=== PATIENT | female | born 1990 | race Caucasian/White ===

== ENCOUNTER 2016-09-14 22:17 | Outpatient (CLI) | payer OTHER ==
[2016-09-14 23:53] LABS: APPEARANCE,URINE CLEAR; BILIRUBIN,URINE NEGATIVE (NEGATIVE); GLUCOSE, URINE NEGATIVE (NEGATIVE); KETONES,URINE NEGATIVE (NEGATIVE); LEUKOCYTE ESTERASE,URINE SMALL (NEGATIVE); NITRITE,URINE NEGATIVE (NEGATIVE); PROTEIN,URINE NEGATIVE (NEGATIVE); URINE SPECIFIC GRAVITY 1.004; UROBILINOGEN,URINE NEGATIVE mg/dL (<2.0)
[2016-09-15 00:02] LABS: URINE BARBITURATES SCREEN NEGATIVE; URINE METHADONE SCREEN NEGATIVE; URINE OPIATES LOW NEGATIVE; URINE PHENCYCLIDINE SCREEN NEGATIVE
--- NOTE | 2016-09-15 00:11 | Non Stress Test Report ---
Non Stress Test Datetime Report Generated by CPN: 09/15/2016 00:10 DEMOGRAPHIC EGA NST: 37.1 INDICATION Indication for Study: Decreased Movement; Ordered by Provider MONITORING Monitor Explained: Monitor Explained; Test Explained; Patient Verbalized Understanding Time on Monitor: 09/14/2016 23:26 Time off Monitor: 09/15/2016 00:09 NST Duration: 43 NST INTERVENTIONS NST Interventions: PO Hydration Physician Notified NST: Nickolas BABY A: [id number] BABY A Movement : Present Contraction Frequency : none FHR Baseline : 150 Accelerations : 15X15 Decelerations : None Variability : Moderate 6-25bpm NST Review: Meets Criteria for Reactive NST NST Review and Verified By : Karen Molina RN NST Results: Reactive NST REPORT Report Trigger: Send Report
== END 2016-09-15 00:19 | disposition home or self-care (01) ==
LOC: LC 22:17
PROVIDERS: ATTEND Specialist
PROC: 4A1HXCZ Monitoring of Products of Conception, Cardiac Rate, External Approach (ICD-10-PCS; principal; 2016-09-14)
DX: O47.1 False labor at or after 37 completed weeks of gestation (principal); O36.8130 Decreased fetal movements, third trimester, not applicable or unspecified; Z3A.37 37 weeks gestation of pregnancy
CPT/HCPCS: 80307; 81001

== ENCOUNTER 2016-10-07 22:55 | Inpatient (IN) | payer OTHER ==
[2016-10-08 00:20] LABS: APPEARANCE,URINE CLEAR; BILIRUBIN,URINE NEGATIVE (NEGATIVE); GLUCOSE, URINE NEGATIVE (NEGATIVE); KETONES,URINE NEGATIVE (NEGATIVE); LEUKOCYTE ESTERASE,URINE NEGATIVE (NEGATIVE); NITRITE,URINE NEGATIVE (NEGATIVE); PROTEIN,URINE NEGATIVE (NEGATIVE); URINE SPECIFIC GRAVITY 1.004; UROBILINOGEN,URINE NEGATIVE mg/dL (<2.0)
[2016-10-08 00:36] LABS: URINE BARBITURATES SCREEN NEGATIVE; URINE METHADONE SCREEN NEGATIVE; URINE OPIATES LOW NEGATIVE; URINE PHENCYCLIDINE SCREEN NEGATIVE
[2016-10-08] MEDS ORDERED: MAG HYDROX/AL HYDROX/SIMETH SUSP 30 ML UDCUP PO ONE (02:03)
[2016-10-08] MEDS ORDERED: MAG HYDROX/AL HYDROX/SIMETH SUSP 30 ML UDCUP ONE (02:08)
[2016-10-08] MEDS ORDERED: RINGERS SOLUTION,LACTATED 1,000 ML IV PRN (02:59)
[2016-10-08] MEDS ORDERED: RINGERS SOLUTION,LACTATED 1,000 ML IV ONE (02:59)
[2016-10-08 03:28] LABS: ABSOLUTE BASOPHILS # (AUTO) 0.1 10^3/uL (0.0-0.2); ABSOLUTE EOSINOPHILS # (AUTO) 0.1 10^3/uL (0.0-0.6); ABSOLUTE LYMPHOCYTES (AUTO) 1.5 10^3/uL (0.5-4.7); ABSOLUTE MONOCYTES (AUTO) 0.7 10^3/uL (0.1-1.4); ABSOLUTE NEUT (AUTO) 6.1 10^3/uL (1.7-8.2); BASOPHILS % (AUTO) 0.6 % (0-2); EOSINOPHILS % (AUTO) 0.8 % (0-6); HEMOGLOBIN 10.3 g/dL (12.0-15.5); HGB HCT DIFFERENCE -0.1; MEAN CORPUSCULAR HEMOGLOBIN 25.9 pg (27.0-33.4); MEAN CORPUSCULAR HGB CONC 33.3 g/dL (32.0-36.0); MEAN CORPUSCULAR VOLUME 78 fl (80-97); MONOCYTES % (AUTO) 8.4 % (3-13); RED BLOOD COUNT 3.99 10^6/uL (3.72-5.28); RED CELL DISTRIBUTION WIDTH 16.8 % (11.5-14.0); SEGMENTED NEUTROPHILS % (AUTO) 72.2 % (42-78); WHITE BLOOD COUNT 8.5 10^3/uL (4.0-10.5)
--- NOTE | 2016-10-08 09:50 | L&D Progress Notes ---
PROGRESS NOTES Datetime Report Generated by CPN: 10/08/2016 09:50 PROGRESS NOTE Impression: Normal Progression of Labor; Reassuring Heart Rate Procedures: Sterile Vag Exam Plan: Continue Present Management Vital Signs : Reviewed; Within Normal Limits Comment: Pt walking using the wireless monitor to bed for SVE. Continue present mgmt. Anticipate . VAGINAL EXAM Dilatation: 7 Dilatation: 5 Effacement: 80 Effacement: 90 Station: -1 Station: -2 Contractions: 2-5 MEMBRANES Pooling: Negative Membranes: Ruptured Membranes: Intact Amniotic Fluid Color: Clear FETUS A FHR - Baseline: 150 Monitoring: External US Variability: Moderate 6-25bpm Accelerations: 15X15 Decelerations: Early FHR Category: Category I : 40.4 Estimated Weight (gm): 3900 Presentation: Vertex SIGNATURE SIGNATURE: [id number] SIGNATURE: [id number] Assignment: Bren Ratliff MD Signature: with User ID: [email or web address] : with User ID: [email or web address]
[2016-10-08] MEDS ORDERED: OXYTOCIN/NORMAL SALINE 1,000 ML IV PRN ×2 (09:59→15:39)
[2016-10-08] MEDS ORDERED: OXYTOCIN/NORMAL SALINE 20 UNIT/1,000 ML RTUINJ ONE (10:03)
[2016-10-08] MEDS ORDERED: NALBUPHINE HCL INJ 10 MG/1 ML AMPULE INJ ONE (10:36)
[2016-10-08] MEDS ORDERED: PROMETHAZINE HCL INJ 25 MG/1 ML VIAL IV ONE (10:37)
[2016-10-08] MEDS ORDERED: PROMETHAZINE HCL INJ 25 MG/1 ML VIAL ONE (10:44)
[2016-10-08] MEDS ORDERED: NALBUPHINE HCL INJ 10 MG/1 ML AMPULE ONE (10:45)
[2016-10-08] MEDS ORDERED: MISOPROSTOL 0.2 MG TABLET ONE (14:41)
[2016-10-08] MEDS ORDERED: LIDOCAINE 1% INJ-PF (10 MG/ML) 30 ML SDV ONE (14:41)
[2016-10-08] MEDS ORDERED: DIPH/PERTUSS(ACELL)/TETANUS VAC/PF 0.5 ML SYR (>=10YO) IM PRN (15:39)
[2016-10-08] MEDS ORDERED: DIBUCAINE 1% OINTMENT 28 GM TP PRN (15:39)
[2016-10-08] MEDS ORDERED: MEASLES,MUMPS&RUBELLA VACC/PF 0.5 ML VIAL SUBCUT PRN (15:39)
[2016-10-08] MEDS ORDERED: ACETAMINOPHEN WITH CODEINE #3 TABLET PO PRN ×2 (15:39)
[2016-10-08] MEDS ORDERED: BENZOCAINE/MENTHOL AEROSOL SPRAY 56 ML TOP PRN (15:39)
[2016-10-08] MEDS ORDERED: ZOLPIDEM TARTRATE 5 MG TABLET PO PRN (15:39)
--- NOTE | 2016-10-08 17:41 | Delivery Summary ---
Del Sum A-C Datetime Report Generated by CPN: 10/08/2016 17:40 DELIVERY PERSONNEL DELIVERY PERSONNEL: [id number] Delivery Doctor:: Helen Beard CNM Nurse Analytic Manager Certified:: Helen Beard CNM Labor and Delivery Nurse:: Jayjay Ames RNneighborhood aide Nurse:: Denise Dickerson RN Commercial Real Estate Underwriter:: Kathryn Mendoza RN Additional Personnel: : Emmanuelle Davison, RNC MATERNAL INFORMATION Medications After Delivery: Pitocin Bolus-Please Comment; Pitocin Drip 20 Units/1000ml NSS Estimated Blood Loss (ml): 400 Maternal Complications: None Provider Comments: of viable male infant, head delivered without difficulty, nuchal X1 noted, reduced shoulder and body delivered without difficulty. Infant with cry and respirations after stimualtion, to maternal abdomen, cord clamped X2 and infant cut free by pts support person, after 2 min delay. Spontaneous delivery of placenta via elizalde, appears intact, 3VC. Vagina and perineum inspected, no lacerations noted. Hemostasis acheived with external fundal massage and IV pitocin, mother and baby in stable condition, routine pp care. LABOR SUMMARY EDC: 10/04/2016 00:00 No. Babies in Womb: 1 Attempted: No Labor Anesthesia: IV Sedation LABOR INFORMATION Reason for Induction: Not Applicable Onset of Labor: 10/08/2016 05:40 Complete Dilatation: 10/08/2016 14:36 Oxytocin: Augmentation Group B Beta Strep: negative Steroids Given: None Reason Steroids Not Administered: Not Applicable MEMBRANES Membranes Rupture Method: Spontaneous Rupture of Membranes: 10/08/2016 07:20 Length of Rupture (hr): 7.88 Amniotic Fluid Color: Clear Amniotic Fluid Amount: Moderate STAGES OF LABOR Stage 1 hr: 8 Stage 1 min: 56 Stage 2 hr: 0 Stage 2 min: 37 Stage 3 hr: 0 Stage 3 min: 4 Total Time in Labor hr: 9 Total Time in Labor min: 37 VAGINAL DELIVERY Episiotomy: None Laceration Extension: N/A Laceration Type: None Laceration Repair: Not Applicable Laceration Repair Note: n/a Sponge Count Correct: N/A Sharps Count Correct: N/A CSECTION DELIVERY Primary Indication: N/A Secondary Indication: N/A CSection Incidence: N/A Elective: N/A CSection Incision: N/A BABY A INFORMATION Delivery Date/Time: 10/08/2016 15:13 Method of Delivery: Vaginal Born in Route : No : N/A Forceps: N/A Vacuum Extraction: N/A Shoulder Dystocia : No PRESENTATION/POSITION BABY A Presentation: Cephalic Cephalic Presentation: Vertex Vertex Position: Left Occipital Anterior Breech Presentation: N/A PLACENTA INFORMATION BABY A Placenta Delivery Time : 10/08/2016 15:17 Placenta Method of Delivery: Spontaneous Placenta Status: Delivered SCORES BABY A Heart Rate 1 min: >100 bpm Resp Effort 1 min: Good Cry Reflex Irritability 1 min: Cough or Sneeze or Pulls Away Muscle Tone 1 min: Some Flexion of Extremities Color 1 min: Blue/Pale Resuscitation Effort 1 min: Tactile Stimulation SCORE 1 MIN: 7 Heart Rate 5 min: >100 bpm Resp Effort 5 min: Good Cry Reflex Irritability 5 min: Cough or Sneeze or Pulls Away Muscle Tone 5 min: Active Motion Color 5 min: Body Oxly, Extremities Blue Resuscitation Effort 5 min: N/A SCORE 5 MIN: 9 Resuscitation Effort 10 min: N/A INFORMATION BABY A Gestational Age at Delivery: 40.4 Gestational Status: Full Term- 39- 40.6 Weeks Outcome : Liveborn Condition : Stable Infant Sex: Male IDENTIFICATION BABY A Infant Verification Date/Time: 10/08/2016 15:24 ID Band Number: [id number] Mother's Name Verified: Yes RN Verifying Infant: CNga Ames RN, Betty Tuan RNC WEIGHT/LENGTH BABY A Infant Birthweight (gm): 3670 Infant Weight (lb): 8 Weight (oz): 1 Length (in): 20.00 Infant Length (cm): 50.80 CORD INFORMATION BABY A No. Cord Vessels: 3 Nuchal Cord : Around Neck x1, Loose Cord Blood Taken: Yes-For Storage (Mom's Blood type +) Infant Suction: Mouth; Nose ASSESSMENT BABY A Infant Complications: None Physical Findings at Delivery: Molding of the Head Infant Respirations: Appears Normal Professor Of Biostatistics/ALS Called : No Infant Care By: D. Sabrinaavance RNC Transferred To: Remains with Mother BABY B INFORMATION : N/A SIGNATURES Assignment: Bren Ratliff MD Signature: with User ID: [email or web address] : with User ID: [email or web address]
--- NOTE | 2016-10-08 18:40 | Admission Physical ---
Datetime Report Generated by CPN: 10/08/2016 18:40 CURRENT ADMISSION Chief Complaint: Uterine Contractions Indication for Induction: Not Applicable Admit Plan: Admit to Unit; Initiate Labor Protocol ALLERGIES Medication Allergies: Yes Medication Allergies: amoxicillin (10/07/2016) Medication Allergies: amoxicillin (09/14/2016) Medication Allergies: amoxicillin (02/15/2016) Latex: No Latex Allergies OBSTETRICAL HISTORY EDC: 10/04/2016 00:00 : 2 Para: 1 Term: 1 : 0 SAB: 0 IAB: 0 Ectopic: 0 Livin Cesareans: 0 VBACs: 0 Multiple Births: 0 Gestational Diabetes: No Rh Sensitization: No Incompetent Cervix: No DANDRE: No Infertility: No ART Treatment: No Uterine Anomaly: No IUGR: No Hx Previous C/S: No Macrosomia: No Hx Loss/Stillborn: No PIH: No Hx : No Placenta Previa/Abruption: No Depression/PP Depression: No PTL/PROM: No Post Hemorrhage: No Current Procedures: Ultrasound; NST Obstetrical History Comments: G1: 40 wk 02/2010, vaccuum assisted 6 lb 14 oz G2: current, size greater than dates SEE RECORDS Alcohol: No Marijuana : No Cocaine: No Other Illicit Drugs: No Cigarettes: Never Smoker. [id number] MEDICAL HISTORY Diabetes: No Blood Transfusion: No Pulmonary Disease (Asthma, TB): No Breast Disease: No Hypertension: No Insulation Board Back Tender Surgery: No Heart Disease: No Hosp/Surgery: No Autoimmune Disorder: No Anesthetic Complications: No Kidney Disease: No Abnormal Pap Smear: No Neuro/Epilepsy: No Psychiatric Disorders: No Other Medical Diseases: No Hepatitis/Liver Disease: No Significant Family History: No Varicosities/Phlebitis: No Trauma/Violence : No Thyroid Dysfunction: No INFECTIOUS HISTORY Gonorrhea: No Genital Herpes: No Chlamydia: Yes Tuberculosis: No Syphilis: No Hepatitis: No HIV/AIDS Exposure: No Rash or Viral Illness: No HPV: No Infectious History Comments: chlamydia 03/2015 PHYSICAL EXAM General: Normal HEENT: Normal Neurologic: Normal Thyroid: Normal Heart: Normal Lungs: Normal Breast: Normal Back: Normal Abdomen: Normal Genitourinary Exam: Normal Extremities: Normal DTRs: Normal Pelvic Type: Adequate Vital Signs: Reviewed VAGINAL EXAM Dilatation: 7 Dilatation: 5 Effacement: 80 Effacement: 90 Station: -1 Station: -2 Contraction Comments: 2-5 MEMBRANES Pooling: Negative Membranes: Ruptured Membranes: Intact Amniotic Fluid Color: Clear FETUS A EGA: 40.4 Monitoring: External US FHR- Baseline: 140 Variability: Moderate 6-25bpm Accelerations: 15X15 Decelerations: None FHR Category: Category I Estimated Weight (gm): 3900 Presentation: Vertex PLANS FOR LABOR AND DELIVERY Labor and Delivery: None Pain Management: Epidural Feeding Preference: Breast Benefit of Breast Feed Discussed: Yes Circumcision: Yes INFORMED CONSENT Signature: with User ID: [email or web address]
[2016-10-08] MEDS: IBUPROFEN 800 MG TABLET PO SCH (22:02)
[2016-10-08] MEDS: FERROUS SULFATE 325 MG TABLET PO SCH (23:51)
[2016-10-08] MEDS: DOCUSATE SODIUM 100 MG CAPSULE PO SCH (23:51)
[2016-10-09] MEDS: IBUPROFEN 800 MG TABLET PO SCH ×3 (05:29→22:24)
[2016-10-09 08:22] LABS: HEMOGLOBIN 8.7 g/dL (12.0-15.5); HGB HCT DIFFERENCE -0.9; MEAN CORPUSCULAR HEMOGLOBIN 25.2 pg (27.0-33.4); MEAN CORPUSCULAR HGB CONC 32.2 g/dL (32.0-36.0); MEAN CORPUSCULAR VOLUME 78 fl (80-97); RED BLOOD COUNT 3.46 10^6/uL (3.72-5.28); RED CELL DISTRIBUTION WIDTH 16.7 % (11.5-14.0); WHITE BLOOD COUNT 16.4 10^3/uL (4.0-10.5)
--- NOTE | 2016-10-09 09:19 | PDOC PROGRESS REPORT ---
Subjective-OB Subjective: Post Delivery Day: 1 26 year old. Denies any needs at this time, states lochia is stable, voiding without difficulty, pain well controlled. Physical Exam (OB) Vital Signs: Temp Pulse Resp BP Pulse Ox 97.9 F 65 16 112/64 100 10/09/16 07:16 10/09/16 07:16 10/09/16 07:16 10/09/16 07:16 10/09/16 07:16 Intake & Output 10/08/16 10/09/16 10/10/16 06:59 06:59 06:59 Weight 52.75 kg - Lochia Lochia Amount: Small 10-25 ml Lochia Color: Rubra/Red - Abdomen Description: Soft, Round Hernia Present: No Fundal Description: Firm, Midline Fundal Height: u/u - u/2 Objective-Diagnostic Laboratory: 10/09/16 07:57 10/09/16 07:57 WBC 16.4 H RBC 3.46 L Hgb 8.7 L Hct 27.0 L MCV 78 L MCH 25.2 L MCHC 32.2 RDW 16.7 H Plt Count 207 Assessment and Plan(PN) - Assessment and Plan (1) Delivery normal Is this a current diagnosis for this admission?: YesPlan: routine pp care - Time Spent with Patient Time with patient: Less than 15 minutes Critical Time spent with patient: Less than 15 minutes Medications reviewed and adjusted accordingly: Yes - Disposition Anticipated Discharge: Home with Homehealth Within: within 24 hours
[2016-10-09] MEDS: FERROUS SULFATE 325 MG TABLET PO SCH ×2 (09:49→17:59)
[2016-10-09] MEDS: DOCUSATE SODIUM 100 MG CAPSULE PO SCH ×2 (09:49→17:59)
[2016-10-09] MEDS: PRENATAL VITAMIN W-O CA NO5/FE FUMARATE/FA CAPSULE PO SCH (09:50)
[2016-10-09] MEDS: SENNOSIDES/DOCUSATE 8.6-50 MG 1 EACH TABLET PO SCH (09:50)
[2016-10-10] MEDS: IBUPROFEN 800 MG TABLET PO SCH (06:43)
--- NOTE | 2016-10-10 09:26 | PDOC DISCHARGE SUMMARY ---
Final Diagnosis Discharge Date: 10/10/16 - Final Diagnosis (1) Delivery normal Is this a current diagnosis for this admission?: Yes Discharge Data - Discharge Medication Home Medications: Prenat Vit Comb.10/Iron/FA/Dha [Vitafol-Ob+Dha Combo Pack] 1 each PO DAILY 09/14 Ranitidine HCl [Zantac 150 mg Tablet] 150 mg PO DAILY 09/14/16 Docusate Sodium [Colace 100 mg Capsule] 100 mg PO BID #60 capsule 10/10/16 Ferrous Sulfate [Feosol 325 mg Tablet] 325 mg PO BID #60 tablet 10/10/16 Ibuprofen [Motrin 800 mg Tablet] 800 mg PO Q8 #60 tablet 10/10/16 Gestational Age: 40.4 Reason(s) for Admission: Onset of Labor Procedures: NST Intrapartum Procedure(s): Spontaneous Vaginal Delivery - Data Baby 1 Male at 1 minute: 7 at 5 minutes: 9 Weight: 3.657 kg - Diagnosis Test Laboratory: Temp Pulse Resp BP Pulse Ox 98.8 F 79 16 114/69 100 10/10/16 07:59 10/10/16 07:59 10/10/16 07:59 10/10/16 07:59 10/10/16 07:59 10/07/16 10/08/16 10/09/16 23:10 03:18 07:57 RBC 3.99 3.46 L Hgb 10.3 L 8.7 L Hct 31.0 L 27.0 L Urine Opiates Screen NEGATIVE - Discharge information/Instructions Discharge Activity: Activity As Tolerated, Pelvic Rest, No tub bath Discharge Diet: Regular Disposition: HOME, SELF-CARE Follow up with: [facility] in: 4, Weeks
[2016-10-10] MEDS: FERROUS SULFATE 325 MG TABLET PO SCH (10:16)
[2016-10-10] MEDS: SENNOSIDES/DOCUSATE 8.6-50 MG 1 EACH TABLET PO SCH (10:16)
[2016-10-10] MEDS: DOCUSATE SODIUM 100 MG CAPSULE PO SCH (10:16)
[2016-10-10] MEDS: PRENATAL VITAMIN W-O CA NO5/FE FUMARATE/FA CAPSULE PO SCH (10:21)
[2016-10-10 10:43] VITALS: BP 112/69
== END 2016-10-10 13:08 | disposition home or self-care (01) | DRG 775 ==
LOC: LC 22:55 → LR 10-08 03:04 → 2S 10-08 18:39
PROVIDERS: ADMIT Obstetrics & Gynecology; ATTEND Obstetrics & Gynecology
PROC: 10E0XZZ Delivery of Products of Conception, External Approach (ICD-10-PCS; principal; 2016-10-08)
PROC: 4A1HXCZ Monitoring of Products of Conception, Cardiac Rate, External Approach (ICD-10-PCS; 2016-10-08)
DX: O26.843 Uterine size-date discrepancy, third trimester (principal); O69.81X0 Labor and delivery complicated by cord around neck, without compression, not applicable or unspecified; Z88.1 Allergy status to other antibiotic agents; Z3A.40 40 weeks gestation of pregnancy; Z37.0 Single live birth
CPT/HCPCS: 36415; 80307; 81005; 85025; 85027; 86592; 86850; 86900; 86901; J2300; J2550; J2590; J3490

== ENCOUNTER 2018-11-13 10:24 | Emergency (ER) | payer OTHER ==
--- NOTE | 2018-11-13 10:48 | ER Document Report ---
ED Medical Screen (RME) - General Chief Complaint: Near Syncope Stated Complaint: NEAR SYNCOPE Time Seen by Provider: 11/13/18 10:42 Notes: Patient is a 28-year-old female presents to the emergency department with a chief complaint of lightheadedness. Patient states this morning she was at the grocery store when she had an episode where she felt hot and sweaty. Patient states she had to lower herself to the ground and she felt like she was going to pass out and was extremely lightheaded. Patient states she did not have a loss of consciousness. Patient states she did eat breakfast. Patient reports she is 27 weeks and is not currently having abdominal pain, vaginal bleeding or vaginal discharge. Patient states she thinks she has felt movement but has not been paying attention. Patient denies urinary symptoms or recent illness. Patient does report a history of anemia with her previous but is not currently taking iron. Patient denies chest pain. Patient does report recent shortness of breath but attributed to . TRAVEL OUTSIDE OF THE [place] IN LAST 30 DAYS: No - Related Data Allergies/Adverse Reactions: amoxicillin Allergy (Verified 11/13/18 10:25) Physical Exam - Vital signs Vitals: Temp Pulse Resp BP Pulse Ox 97.8 F 83 16 108/62 100 11/13/18 10:11/13/18 10:11/13/18 10:11/13/18 10:11/13/18 10:28 - Respiratory Respiratory status: No respiratory distress Chest status: Nontender Breath sounds: Normal Chest palpation: Normal - Cardiovascular Rhythm: Regular Heart sounds: Normal auscultation, S1 appreciated, S2 appreciated Course - Re-evaluation Re-evalutation: 11/13/18 10:48 I have greeted and performed a rapid initial assessment of this patient. A comprehensive ED assessment and evaluation of the patient, analysis of test results and completion of the medical decision making process will be conducted by additional ED providers. - Vital Signs Vital signs: Temp Pulse Resp BP Pulse Ox 97.8 F 83 16 108/62 100 11/13/18 10:28 11/13/18 10:11/13/18 10:11/13/18 10:11/13/18 10:28
[2018-11-13 11:24] LABS: ABSOLUTE EOSINOPHILS # (AUTO) 0.1 10^3/uL (0.0-0.6); ABSOLUTE LYMPHOCYTES (AUTO) 1.2 10^3/uL (0.5-4.7); ABSOLUTE MONOCYTES (AUTO) 0.8 10^3/uL (0.1-1.4); ABSOLUTE NEUT (AUTO) 7.3 10^3/uL (1.7-8.2); BASOPHILS % (AUTO) 0.3 % (0-2); EOSINOPHILS % (AUTO) 0.9 % (0-6); HEMATOCRIT 33.3 % (36.0-47.0); HEMOGLOBIN 11.2 g/dL (12.0-15.5); LYMPHOCYTES % (AUTO) 12.4 % (13-45); MEAN CORPUSCULAR HEMOGLOBIN 27.3 pg (27.0-33.4); MEAN CORPUSCULAR HGB CONC 33.6 g/dL (32.0-36.0); MEAN CORPUSCULAR VOLUME 81 fl (80-97); MONOCYTES % (AUTO) 8.3 % (3-13); PLATELET COUNT 192 10^3/uL (150-450); RED CELL DISTRIBUTION WIDTH 13.4 % (11.5-14.0); SEGMENTED NEUTROPHILS % (AUTO) 78.1 % (42-78); TOTAL CELLS COUNTED % (AUTO) 100 %; WHITE BLOOD COUNT 9.4 10^3/uL (4.0-10.5)
[2018-11-13 11:28] LABS: APPEARANCE,URINE CLOUDY; BILIRUBIN,URINE NEGATIVE (NEGATIVE); COLOR,URINE YELLOW; GLUCOSE, URINE NEGATIVE (NEGATIVE); KETONES,URINE NEGATIVE (NEGATIVE); LEUKOCYTE ESTERASE,URINE MODERATE (NEGATIVE); NITRITE,URINE NEGATIVE (NEGATIVE); PROTEIN,URINE NEGATIVE (NEGATIVE); URINE SPECIFIC GRAVITY 1.019; UROBILINOGEN,URINE NEGATIVE mg/dL (<2.0)
--- NOTE | 2018-11-13 11:29 | ER Document Report ---
ED General - General Chief Complaint: Near Syncope Stated Complaint: NEAR SYNCOPE Time Seen by Provider: 11/13/18 10:42 Primary Care Provider: COLE RICE MD [Primary Care Provider] - Follow up as needed Notes: Patient who is 29 weeks presents with near syncopal episode. He was at [employer] standing lying got dizzy and warm crouched down felt better and then stood up rapidly and almost lost consciousness. She did not actually faint or fall. She had no belly pain loss of fluid or vaginal bleeding. Is having her first presents as well. She since drink water and feels better. She did have breakfast this morning does not take medications and has no family history of sudden . TRAVEL OUTSIDE OF THE [place] IN LAST 30 DAYS: No - Related Data Allergies/Adverse Reactions: amoxicillin Allergy (Verified 11/13/18 10:25) Past Medical History - Social History Smoking Status: Never Smoker Frequency of alcohol use: None Drug Abuse: None Family History: Reviewed & Not Pertinent Patient has suicidal ideation: No Patient has homicidal ideation: No Review of Systems - Review of Systems Notes: REVIEW OF SYSTEMS GEN: Denies fever, chills, weight loss ENT: Denies sore throat, nasal discharge, ear pain EYES: Denies blurry vision, eye pain, discharge CV: Denies chest pain, palpitations, edema RESP: Denies cough, shortness of breath, wheezing GI: Denies abdominal pain, nausea, vomiting, diarrhea MSK: Denies joint pain/swelling, edema, SKIN: Denies rash, skin lesions LYMPH: Denies swollen glands/lymph nodes NEURO: Dizziness PSYCH: Denies depression, suicidal or homicidal ideation PHYSICAL EXAMINATION General: No acute distress, well-nourished Head: Atraumatic, normocephalic ENT: Mouth normal, oropharynx moist, no exudates or tonsillar enlargement Eyes: Conjunctiva normal, pupils equal, lids normal Neck: No JVD, supple, no guarding CVS: Normal rate, regular rhythm, no murmurs Resp: No resp distress, equal and normal breath sounds bilaterally GI: Nondistended, soft, no tenderness to palpation, no rebound or guarding Ext: No deformities, no edema, normal range of motion in upper and lower ext Back: No CVA or midline TTP Skin: No rash, warm Lymphatic: No lymphadeopathy noted Neuro: Awake, alert. Face symmetric. GCS 15. Physical Exam - Vital signs Vitals: Temp Pulse Resp BP Pulse Ox 97.8 F 83 16 108/62 100 11/13/18 10:28 11/13/18 10:28 11/13/18 10:28 11/13/18 10:28 11/13/18 10:28 Course - Re-evaluation Re-evalutation: 11/13/18 11:27 Patient presents with positional syncope in the setting of likely decreased venous return/uterine pressure on the IVC plus or minus hypovolemia. She looks excellent in the ED has good heart tones. Labs will be checkedif normal the patient be discharged home to hydrate well. She has no chest pain headache or other features of dangerous cause of syncope. I have discussed with the patient there likely diagnosis, aftercare plan, follow-up plans and my usual and customary return precautions. They verbalized understanding of this. 11/13/18 14:17 Labs and EKG normal. heart tones present. Feeling well. Stable for discharge. - Vital Signs Vital signs: Temp Pulse Resp BP Pulse Ox 98.3 F 78 15 105/72 98 11/13/18 12:00 11/13/18 12:00 11/13/18 12:00 11/13/18 12:00 11/13/18 12:00 - Laboratory Result Diagrams: 11/13/18 11:00 11/13/18 11:00 Laboratory results interpreted by me: 11/13/18 11/13/18 11/13/18 11:00 11:00 11:00 Hgb 11.2 L Hct 33.3 L Lymph % (Auto) 12.4 L Seg Neutrophils % 78.1 H Sodium 133.9 L Creatinine 0.41 L Ur Leukocyte Esterase MODERATE H Discharge - Discharge Clinical Impression: Syncope and collapse Condition: Good Disposition: HOME, SELF-CARE Instructions: Syncopal Episode ([facility]) Referrals: COLE RICE MD [Primary Care Provider] - Follow up as needed
[2018-11-13 11:41] LABS: ANION GAP 8 (5-19); BLOOD UREA NITROGEN 11 mg/dL (7-20); CALCIUM 9.6 mg/dL (8.4-10.2); CARBON DIOXIDE 22 mmol/L (22-30); CHLORIDE 104 mmol/L (98-107); GLUCOSE 86 mg/dL (75-110); POTASSIUM 3.9 mmol/L (3.6-5.0)
[2018-11-13 12:02] VITALS: BP 105/72
--- NOTE | 2018-11-14 23:30 | EKG REPORT ---
SEVERITY:- NORMAL ECG - SINUS RHYTHM : Confirmed by: Yocasta Puentes 14-Nov-2018 23:29:39
== END 2018-11-13 12:00 | disposition home or self-care (01) ==
LOC: ER 10:24
DX: O26.893 Other specified pregnancy related conditions, third trimester (principal); O99.353 Diseases of the nervous system complicating pregnancy, third trimester; R55 Syncope and collapse; Z3A.29 29 weeks gestation of pregnancy
CPT/HCPCS: 36415; 80048; 81001; 85025; 93005; 93010; 99284

== ENCOUNTER 2019-01-28 19:08 | Outpatient (CLI) | payer OTHER ==
[2019-01-28 19:38] LABS: APPEARANCE,URINE SLIGHTLY-CLOUDY; BILIRUBIN,URINE NEGATIVE (NEGATIVE); COLOR,URINE STRAW; GLUCOSE, URINE NEGATIVE (NEGATIVE); KETONES,URINE NEGATIVE (NEGATIVE); LEUKOCYTE ESTERASE,URINE NEGATIVE (NEGATIVE); NITRITE,URINE NEGATIVE (NEGATIVE); PROTEIN,URINE NEGATIVE (NEGATIVE); URINE SPECIFIC GRAVITY 1.003; UROBILINOGEN,URINE NEGATIVE mg/dL (<2.0)
[2019-01-28 19:55] LABS: URINE AMPHETAMINES SCREEN NEGATIVE; URINE BARBITURATES SCREEN NEGATIVE; URINE BENZODIAZEPINES SCREEN NEGATIVE; URINE COCAINE SCREEN NEGATIVE; URINE MARIJUANA (THC) SCREEN NEGATIVE; URINE METHADONE SCREEN NEGATIVE; URINE PHENCYCLIDINE SCREEN NEGATIVE
--- NOTE | 2019-01-28 21:43 | Non Stress Test Report ---
Non Stress Test Datetime Report Generated by CPN: 01/28/2019 21:42 DEMOGRAPHIC EGA NST: 38.4 INDICATION Indication for Study (NST) Other: lc MONITORING Monitor Explained: Monitor Explained; Test Explained; Patient Verbalized Understanding Time on Monitor: 01/28/2019 19:39 NST INTERVENTIONS NST Interventions: PO Hydration; Reposition Patient Physician Notified NST: Dr Arteaga BABY A: [id number] BABY A Movement : Present Accelerations : 15X15 Decelerations : None Variability : Moderate 6-25bpm NST Review: Meets Criteria for Reactive NST NST Review and Verified By : qamra MCGILLT Results: Reactive NST REPORT Report Trigger: Send Report
== END 2019-01-28 21:54 | disposition home or self-care (01) ==
LOC: LC 19:08
PROVIDERS: ATTEND Obstetrics & Gynecology Gynecology
PROC: 4A1HXCZ Monitoring of Products of Conception, Cardiac Rate, External Approach (ICD-10-PCS; principal; 2019-01-28)
DX: Z34.83 Encounter for supervision of other normal pregnancy, third trimester (principal); Z3A.38 38 weeks gestation of pregnancy
CPT/HCPCS: 59025; 80307; 81005

== ENCOUNTER 2019-02-01 04:19 | Outpatient (CLI) | payer OTHER ==
[2019-02-01 05:13] LABS: APPEARANCE,URINE SLIGHTLY-CLOUDY; BILIRUBIN,URINE NEGATIVE (NEGATIVE); COLOR,URINE YELLOW; GLUCOSE, URINE NEGATIVE (NEGATIVE); KETONES,URINE NEGATIVE (NEGATIVE); LEUKOCYTE ESTERASE,URINE NEGATIVE (NEGATIVE); NITRITE,URINE NEGATIVE (NEGATIVE); PROTEIN,URINE NEGATIVE (NEGATIVE); URINE SPECIFIC GRAVITY 1.019; UROBILINOGEN,URINE NEGATIVE mg/dL (<2.0)
[2019-02-01 05:35] LABS: URINE AMPHETAMINES SCREEN NEGATIVE; URINE BARBITURATES SCREEN NEGATIVE; URINE BENZODIAZEPINES SCREEN NEGATIVE; URINE COCAINE SCREEN NEGATIVE; URINE MARIJUANA (THC) SCREEN NEGATIVE; URINE METHADONE SCREEN NEGATIVE; URINE PHENCYCLIDINE SCREEN NEGATIVE
== END 2019-02-01 06:16 | disposition home or self-care (01) ==
LOC: LC 04:19
PROVIDERS: ATTEND Obstetrics & Gynecology
PROC: 4A1HXCZ Monitoring of Products of Conception, Cardiac Rate, External Approach (ICD-10-PCS; principal; 2019-02-01)
DX: O47.1 False labor at or after 37 completed weeks of gestation (principal); Z3A.39 39 weeks gestation of pregnancy
CPT/HCPCS: 59025; 80307; 81005

== ENCOUNTER 2019-02-02 00:23 | Inpatient (IN) | payer OTHER ==
--- NOTE | 2019-02-02 00:28 | Non Stress Test Report ---
Non Stress Test Datetime Report Generated by CPN: 02/02/2019 00:28 DEMOGRAPHIC EGA NST: 39.1 INDICATION Indication for Study (NST) Other: labor check - contractions MONITORING Monitor Explained: Monitor Explained; Test Explained; Patient Verbalized Understanding Time on Monitor: 02/01/2019 04:51 Time off Monitor: 02/01/2019 06:02 NST Duration: 71 NST INTERVENTIONS NST Interventions: None Physician Notified NST: Dr Lopez BABY A: [id number] BABY A Movement : Present Contraction Frequency : 5-10 FHR Baseline : 120 Accelerations : 15X15 Decelerations : None Variability : Moderate 6-25bpm NST Review: Meets Criteria for Reactive NST NST Review and Verified By : J.Field RN NST Results: Reactive NST REPORT Report Trigger: Send Report
[2019-02-02] MEDS ORDERED: RINGERS SOLUTION,LACTATED 1,000 ML IV ONE (00:55)
[2019-02-02] MEDS ORDERED: RINGERS SOLUTION,LACTATED 1,000 ML IV PRN (00:55)
--- NOTE | 2019-02-02 00:59 | Admission Physical ---
Datetime Report Generated by CPN: 02/02/2019 00:58 CURRENT ADMISSION Chief Complaint: Uterine Contractions Indication for Induction: Not Applicable Admit Impression : Term, Intrauterine Admit Plan: Admit to Unit; Initiate Labor Protocol ALLERGIES Medication Allergies: Yes Medication Allergies: amoxicillin (11/13/2018) OBSTETRICAL HISTORY EDC: 02/07/2019 00:00 : 5 Para: 2 Term: 2 : 0 SAB: 2 IAB: 0 Livin Obstetrical History Comments: g1-unsure of date SAB, according to chart was in october of 2009 but patient delivered a child in 02/2010 g2-02/2010- , female, 40 weeks, 6lb 14 oz, vacuum assisted -2013- sab, unsure of gestation g4- 09/2016- , male, 40 weeks, 8lb 1 oz, no complications g5-current MEDICAL HISTORY Hosp/Surgery: Yes Medical History Comments: childbirth x 2 INFECTIOUS HISTORY Chlamydia: Yes Infectious History Comments: chlamydia PHYSICAL EXAM General: Normal HEENT: Normal Neurologic: Normal Thyroid: Normal Heart: Normal Lungs: Normal Breast: Deferred Back: Normal Abdomen: Normal Genitourinary Exam: Normal Extremities: Normal DTRs: Normal Pelvic Type: Adequate FETUS A EGA: 39.2 INFORMED CONSENT Signature: with User ID: [email or web address]
[2019-02-02] MEDS ORDERED: OXYTOCIN/NORMAL SALINE 20 UNIT/1,000 ML RTUINJ ONE (01:03)
[2019-02-02] MEDS ORDERED: MISOPROSTOL 0.2 MG TABLET ONE (01:03)
[2019-02-02] MEDS ORDERED: LIDOCAINE 1% INJ-PF (10 MG/ML) 30 ML SDV ONE (01:03)
[2019-02-02] MEDS ORDERED: OXYTOCIN 10 UNIT/ML VIAL ONE (01:03)
[2019-02-02 01:21] LABS: ABSOLUTE BASOPHILS # (AUTO) 0.1 10^3/uL (0.0-0.2); ABSOLUTE EOSINOPHILS # (AUTO) 0.2 10^3/uL (0.0-0.6); ABSOLUTE MONOCYTES (AUTO) 0.9 10^3/uL (0.1-1.4); ABSOLUTE NEUT (AUTO) 6.4 10^3/uL (1.7-8.2); BASOPHILS % (AUTO) 0.6 % (0-2); HEMATOCRIT 31.8 % (36.0-47.0); HEMOGLOBIN 10.4 g/dL (12.0-15.5); LYMPHOCYTES % (AUTO) 20.8 % (13-45); MEAN CORPUSCULAR HEMOGLOBIN 22.7 pg (27.0-33.4); MEAN CORPUSCULAR HGB CONC 32.6 g/dL (32.0-36.0); MEAN CORPUSCULAR VOLUME 70 fl (80-97); MONOCYTES % (AUTO) 9.4 % (3-13); PLATELET COUNT 189 10^3/uL (150-450); RED BLOOD COUNT 4.57 10^6/uL (3.72-5.28); RED CELL DISTRIBUTION WIDTH 17.3 % (11.5-14.0); SEGMENTED NEUTROPHILS % (AUTO) 67.2 % (42-78); TOTAL CELLS COUNTED % (AUTO) 100 %; WHITE BLOOD COUNT 9.5 10^3/uL (4.0-10.5)
[2019-02-02 01:27] LABS: APPEARANCE,URINE CLEAR; BILIRUBIN,URINE NEGATIVE (NEGATIVE); COLOR,URINE YELLOW; GLUCOSE, URINE NEGATIVE (NEGATIVE); KETONES,URINE NEGATIVE (NEGATIVE); LEUKOCYTE ESTERASE,URINE SMALL (NEGATIVE); NITRITE,URINE NEGATIVE (NEGATIVE); PROTEIN,URINE NEGATIVE (NEGATIVE); UROBILINOGEN,URINE NEGATIVE mg/dL (<2.0)
[2019-02-02 01:48] LABS: URINE AMPHETAMINES SCREEN NEGATIVE; URINE BARBITURATES SCREEN NEGATIVE; URINE BENZODIAZEPINES SCREEN NEGATIVE; URINE COCAINE SCREEN NEGATIVE; URINE MARIJUANA (THC) SCREEN NEGATIVE; URINE METHADONE SCREEN NEGATIVE; URINE PHENCYCLIDINE SCREEN NEGATIVE
[2019-02-02] MEDS ORDERED: GLYCERIN/WITCH HAZEL LEAF 1 EACH MED..WIPE TP PRN (02:15)
[2019-02-02] MEDS ORDERED: ACETAMINOPHEN 650 MG SUPP.RECT PR PRN (02:15)
[2019-02-02] MEDS ORDERED: DIBUCAINE 1% OINTMENT 56 GM TP PRN (02:15)
[2019-02-02] MEDS ORDERED: MEASLES,MUMPS&RUBELLA VACC/PF 0.5 ML VIAL SUBCUT PRN (02:15)
[2019-02-02] MEDS ORDERED: PROMETHAZINE HCL INJ 25 MG/1 ML VIAL IV PRN (02:15)
[2019-02-02] MEDS ORDERED: MAGNESIUM HYDROXIDE SUSP 30 ML UDCUP PO PRN (02:15)
[2019-02-02] MEDS ORDERED: BENZOCAINE/MENTHOL AEROSOL SPRAY 56 ML TOP PRN (02:15)
[2019-02-02] MEDS ORDERED: DIPHENHYDRAMINE HCL 25 MG CAPSULE PO PRN (02:15)
[2019-02-02] MEDS ORDERED: NA PHOS,M-B/NA PHOS,DI-BA (ADULT) 133 ML ENEMA PR PRN (02:15)
[2019-02-02] MEDS ORDERED: ACETAMINOPHEN WITH CODEINE #3 TABLET PO PRN (02:15)
[2019-02-02] MEDS ORDERED: OXYTOCIN/NORMAL SALINE 20 UNIT/1,000 ML RTUINJ IV PRN (02:15)
[2019-02-02] MEDS ORDERED: PROMETHAZINE HCL 25 MG TABLET PO PRN (02:15)
[2019-02-02] MEDS ORDERED: ZOLPIDEM TARTRATE 5 MG TABLET PO PRN (02:15)
[2019-02-02] MEDS ORDERED: PROMETHAZINE HCL 25 MG SUPP.RECT PR PRN (02:15)
[2019-02-02] MEDS ORDERED: PSEUDOEPHEDRINE HCL 30 MG TABLET PO PRN (02:15)
[2019-02-02] MEDS ORDERED: DIPH/PERTUSS(ACELL)/TETANUS VAC/PF 0.5 ML SYR (>=10YO) IM PRN (02:15)
[2019-02-02] MEDS ORDERED: METHYLERGONOVINE MALEATE INJ/PF 0.2 MG/1 ML AMPULE ONE (03:43)
[2019-02-02] MEDS ORDERED: METHYLERGONOVINE MALEATE INJ/PF 0.2 MG/1 ML AMPULE IM ONE (03:45)
[2019-02-02] MEDS ORDERED: IBUPROFEN 800 MG TABLET ONE (04:15)
--- NOTE | 2019-02-02 04:29 | Warning Signs in Babies ---
VOD Warning Signs Datetime Report Generated by [facility]: 02/02/2019 04:29 VOD#608 -Warning Signs in Babies: Viewed with Parent(s)/Family (01/28/2019 19:17:Sunday Lombardi RN)
--- NOTE | 2019-02-02 04:31 | Delivery Summary ---
Del Sum A-C Datetime Report Generated by CPN: 02/02/2019 04:31 DELIVERY PERSONNEL DELIVERY PERSONNEL: [id number] Delivery Doctor:: Donovan Arteaga MD Labor and Delivery Nurse:: Sunday Lombardi RNscript developer Nurse:: Bren Treviño RN School Bus Operator/INSTALLATION COORDINATOR: Eun Green, ST MATERNAL INFORMATION Delivery Anesthesia: None Medications After Delivery: Pitocin Bolus-Please Comment; Cytotec 1000mcg Per Rectum/Vagina; Other-Please Comment Meds After Delivery Comment: Pitocin 20 units/1000 ml NSS Methergine 0.2 mg IM Delivery QBL: 175 Maternal Complications: Precipitous Labor (<3hrs); Hemorrhage LABOR SUMMARY EDC: 02/07/2019 00:00 No. Babies in Womb: 1 Attempted: No Labor Anesthesia: None LABOR INFORMATION Reason for Induction: Not Applicable Onset of Labor: 02/02/2019 20:30 Complete Dilatation: 02/02/2019 01:15 Oxytocin: N/A Group B Beta Strep: negative Antibiotics # of Doses: 0 Steroids Given: None Reason Steroids Not Administered: Not Applicable MEMBRANES Membranes Rupture Method: Artificial Rupture of Membranes: 02/02/2019 01:15 Length of Rupture (hr): 0.85 Amniotic Fluid Color: Clear Amniotic Fluid Amount: Moderate Amniotic Fluid Odor: Normal STAGES OF LABOR Stage 1 hr: -19 Stage 1 min: -15 Stage 2 hr: 0 Stage 2 min: 51 Stage 3 hr: 0 Stage 3 min: 3 Total Time in Labor hr: -18 Total Time in Labor min: -21 VAGINAL DELIVERY Episiotomy: None Laceration #1: None Laceration Extension #1: N/A Laceration Repair: Not Applicable Sponge Count Correct: N/A CSECTION DELIVERY Primary Indication: N/A Secondary Indication: N/A CSection Incidence: N/A Labor: N/A Elective: N/A CSection Incision: N/A BABY A INFORMATION Delivery Date/Time: 02/02/2019 02:06 Method of Delivery: Vaginal Born in Route : No : N/A Forceps: N/A Vacuum Extraction: N/A Shoulder Dystocia : No PRESENTATION/POSITION BABY A Presentation: Cephalic Cephalic Presentation: Vertex Vertex Position: Left Occipital Anterior Breech Presentation: N/A PLACENTA INFORMATION BABY A Placenta Delivery Time : 02/02/2019 02:09 Placenta Method of Delivery: Spontaneous Placenta Status: Delivered SCORES BABY A Heart Rate 1 min: >100 bpm Resp Effort 1 min: Good Cry Reflex Irritability 1 min: Cough or Sneeze or Pulls Away Muscle Tone 1 min: Active Motion Color 1 min: Blue/Pale Resuscitation Effort 1 min: Tactile Stimulation SCORE 1 MIN: 8 Heart Rate 5 min: >100 bpm Resp Effort 5 min: Good Cry Reflex Irritability 5 min: Cough or Sneeze or Pulls Away Muscle Tone 5 min: Active Motion Color 5 min: Body [place], Extremities Blue Resuscitation Effort 5 min: Tactile Stimulation SCORE 5 MIN: 9 INFORMATION BABY A Gestational Age at Delivery: 39.2 Gestational Status: Full Term- 39- 40.6 Weeks Outcome : Liveborn Condition : Stable Sex: Female IDENTIFICATION BABY A Infant Verification Date/Time: 02/02/2019 02:15 ID Band Number: [id number] Mother's Name Verified: Yes Infant RN Verifying Infant: Allison BhattFAHAD Additional Verifying Personnel: Neil Davey RN WEIGHT/LENGTH BABY A Infant Birthweight (gm): 3426 Weight (lb): 7 Weight (oz): 9 Length (in): 19.25 Length (cm): 48.90 CORD INFORMATION BABY A No. Cord Vessels: 3 Nuchal Cord : N/A Cord Blood Taken: Yes-For Storage (Mom's Blood type +) Infant Suction: None ASSESSMENT BABY A Complications: None Physical Findings at Delivery: Within Normal Limits Respirations: Appears Normal Skin to Skin: Yes Skin to Skin Time (min): 60 Infant Care By: J.Field RN Transferred To: Remains with Mother BABY B INFORMATION : N/A SIGNATURES Signature: with User ID: [email or web address]
[2019-02-02] MEDS: IBUPROFEN 800 MG TABLET PO SCH ×4 (06:45→21:13)
--- NOTE | 2019-02-02 10:00 | PDOC PROGRESS REPORT ---
Subjective-OB Progress Note for:: 02/02/19 Subjective: Doing well, baby on mothers chest, hsb in room, voiding Physical Exam (OB) Vital Signs: Temp Pulse Resp BP Pulse Ox 98.4 F 70 16 114/60 97 02/02/19 07:23 02/02/19 07:23 02/02/19 07:23 02/02/19 07:23 02/02/19 07:23 Intake & Output 02/01/19 02/02/19 02/03/19 06:59 06:59 06:59 Weight 54 kg - PIH/Pre-Eclampsia DTR's: 1 + Clonus: Negative Headache: Absent Epigastric Pain: No Visual Changes: No - Lochia Lochia Amount: Scant < 10 ml Lochia Color: Rubra/Red - Abdomen Description: Soft, Round Hernia Present: No Fundal Description: Firm, Midline Fundal Height: u/u - u/2 Objective-Diagnostic Laboratory: 02/02/19 01:11 02/02/19 02/02/19 02/02/19 00:35 01:11 01:11 WBC 9.5 RBC 4.57 Hgb 10.4 L Hct 31.8 L MCV 70 L MCH 22.7 L MCHC 32.6 RDW 17.3 H Plt Count 189 Seg Neutrophils % 67.2 Urine Color YELLOW Urine Appearance CLEAR Urine pH 7.0 Ur Specific [place] 1.010 Urine Protein NEGATIVE Urine Glucose (UA) NEGATIVE Urine Ketones NEGATIVE Urine Blood NEGATIVE Urine Nitrite NEGATIVE Ur Leukocyte Esterase SMALL H Blood Type A POSITIVE Antibody Screen NEGATIVE Assessment and Plan(PN) - Assessment and Plan (1) Acute blood loss anemia Is this a current diagnosis for this admission?: Yes (2) Delivery normal Is this a current diagnosis for this admission?: Yes - Time Spent with Patient Time with patient: Less than 15 minutes Medications reviewed and adjusted accordingly: Yes - Disposition Anticipated Discharge: Home Within: within 24 hours
[2019-02-02] MEDS: PRENATAL VITAMIN W DHA CAPSULE PO SCH (10:04)
[2019-02-02] MEDS: SENNOSIDES/DOCUSATE 8.6-50 MG 1 EACH TABLET PO SCH (10:04)
[2019-02-02] MEDS: FERROUS SULFATE 325 MG TABLET PO SCH ×2 (10:04→17:15)
[2019-02-02] MEDS: FAMOTIDINE 20 MG TABLET PO SCH ×2 (10:04→21:14)
[2019-02-02] MEDS: DOCUSATE SODIUM 100 MG CAPSULE PO SCH ×2 (10:05→17:15)
[2019-02-03] MEDS: IBUPROFEN 800 MG TABLET PO SCH ×2 (06:05→13:24)
[2019-02-03 06:23] LABS: HEMATOCRIT 25.4 % (36.0-47.0); HEMOGLOBIN 8.2 g/dL (12.0-15.5); MEAN CORPUSCULAR HEMOGLOBIN 22.8 pg (27.0-33.4); MEAN CORPUSCULAR HGB CONC 32.3 g/dL (32.0-36.0); MEAN CORPUSCULAR VOLUME 71 fl (80-97); PLATELET COUNT 175 10^3/uL (150-450); RED CELL DISTRIBUTION WIDTH 17.1 % (11.5-14.0)
[2019-02-03 08:43] VITALS: BP 119/65
--- NOTE | 2019-02-03 08:56 | PDOC PROGRESS REPORT ---
Subjective-OB Progress Note for:: 02/03/19 Subjective: Doing well, no c/o, baby, would like to go home if baby can go, scant bleeding Physical Exam (OB) Vital Signs: Temp Pulse Resp BP Pulse Ox 98.3 F 95 18 119/65 98 02/03/19 07:59 02/03/19 07:59 02/03/19 07:59 02/03/19 07:30 02/03/19 07:59 Intake & Output 02/02/19 02/03/19 02/04/19 06:59 06:59 06:59 Intake Total 1240 Balance 1240 Weight 54 kg - PIH/Pre-Eclampsia DTR's: 1 + Clonus: Negative Headache: Absent Epigastric Pain: No Visual Changes: No - Lochia Lochia Amount: Scant < 10 ml Lochia Color: Rubra/Red - Abdomen Description: Soft Hernia Present: No Fundal Description: Firm, Midline Fundal Height: u/u - u/2 Objective-Diagnostic Laboratory: 02/03/19 05:57 02/03/19 05:57 WBC 9.0 RBC 3.60 L Hgb 8.2 L D Hct 25.4 L MCV 71 L MCH 22.8 L MCHC 32.3 RDW 17.1 H Plt Count 175 Assessment and Plan(PN) - Assessment and Plan (1) Acute blood loss anemia Is this a current diagnosis for this admission?: Yes (2) Delivery normal Is this a current diagnosis for this admission?: Yes - Time Spent with Patient Time with patient: Less than 15 minutes Medications reviewed and adjusted accordingly: Yes - Disposition Anticipated Discharge: Home Within: within 24 hours
[2019-02-03] MEDS: SENNOSIDES/DOCUSATE 8.6-50 MG 1 EACH TABLET PO SCH (09:32)
[2019-02-03] MEDS: PRENATAL VITAMIN W DHA CAPSULE PO SCH (09:32)
[2019-02-03] MEDS: FAMOTIDINE 20 MG TABLET PO SCH (09:32)
[2019-02-03] MEDS: DOCUSATE SODIUM 100 MG CAPSULE PO SCH (09:32)
[2019-02-03] MEDS: FERROUS SULFATE 325 MG TABLET PO SCH (09:32)
--- NOTE | 2019-02-03 14:43 | PDOC DISCHARGE SUMMARY ---
Impression - Admit/DC Date/PCP Admission Date/Primary Care Provider: 02/02/19 00:56 COLE RICE MD Discharge Date: 02/03/19 - Discharge Diagnosis (1) Acute blood loss anemia Is this a current diagnosis for this admission?: Yes (2) Delivery normal Is this a current diagnosis for this admission?: Yes - Additional Information Discharge Diet: Regular Discharge Activity: Balance Activity w/Rest, No Lifting Over 10 Pounds, Pelvic Rest Referrals: JULITA SHOEMAKER MD [ACTIVE STAFF] - (RTC 4:weeks) Home Medications: Vit 10/Iron/Folic/Dha [Vitafol-Ob+Dha Combo Pack] 1 each PO DAILY 09/14/16 Famotidine [Pepcid] 1 tab PO DAILY PRN 01/28/19 HPI Gestational Age: 39.2 Reason(s) for Admission: Onset of Labor Procedures: Ultrasound Intrapartum Procedure(s): Spontaneous Vaginal Delivery Hospital Course Hospital Course: normal Results Laboratory Results: WBC 9.0 10^3/uL (4.0-10.5) 02/03/19 05:57 RBC 3.60 10^6/uL (3.72-5.28) L 02/03/19 05:57 Hgb 8.2 g/dL (12.0-15.5) L D 02/03/19 05:57 Hct 25.4 % (36.0-47.0) L 02/03/19 05:57 MCV 71 fl (80-97) L 02/03/19 05:57 MCH 22.8 pg (27.0-33.4) L 02/03/19 05:57 MCHC 32.3 g/dL (32.0-36.0) 02/03/19 05:57 RDW 17.1 % (11.5-14.0) H 02/03/19 05:57 Plt Count 175 10^3/uL (150-450) 02/03/19 05:57 Lymph % (Auto) 20.8 % (13-45) 02/02/19 01:11 [place] % (Auto) 9.4 % (3-13) 02/02/19 01:11 Eos % (Auto) 2.0 % (0-6) 02/02/19 01:11 Baso % (Auto) 0.6 % (0-2) 02/02/19 01:11 Absolute Neuts (auto) 6.4 10^3/uL (1.7-8.2) 02/02/19 01:11 Absolute Lymphs (auto) 2.0 10^3/uL (0.5-4.7) 02/02/19 01:11 Absolute Monos (auto) 0.9 10^3/uL (0.1-1.4) 02/02/19 01:11 Absolute Eos (auto) 0.2 10^3/uL (0.0-0.6) 02/02/19 01:11 Absolute Basos (auto) 0.1 10^3/uL (0.0-0.2) 02/02/19 01:11 Seg Neutrophils % 67.2 % (42-78) 02/02/19 01:11 Urine Color YELLOW 02/02/19 00:35 Urine Appearance CLEAR 02/02/19 00:35 Urine pH 7.0 (5.0-9.0) 02/02/19 00:35 Ur Specific [place] 1.010 02/02/19 00:35 Urine Protein NEGATIVE mg/dL (NEGATIVE) 02/02/19 00:35 Urine Glucose (UA) NEGATIVE mg/dL (NEGATIVE) 02/02/19 00:35 Urine Ketones NEGATIVE mg/dL (NEGATIVE) 02/02/19 00:35 Urine Blood NEGATIVE (NEGATIVE) 02/02/19 00:35 Urine Nitrite NEGATIVE (NEGATIVE) 02/02/19 00:35 Urine Bilirubin NEGATIVE (NEGATIVE) 02/02/19 00:35 Urine Urobilinogen NEGATIVE mg/dL (<2.0) 02/02/19 00:35 Ur Leukocyte Esterase SMALL (NEGATIVE) H 02/02/19 00:35 Urine Ascorbic Acid NEGATIVE (NEGATIVE) 02/02/19 00:35 Urine Opiates Screen NEGATIVE 02/02/19 00:35 Urine Methadone Screen NEGATIVE 02/02/19 00:35 Ur Barbiturates Screen NEGATIVE 02/02/19 00:35 Ur Phencyclidine Scrn NEGATIVE 02/02/19 00:35 Ur Amphetamines Screen NEGATIVE 02/02/19 00:35 U Benzodiazepines Scrn NEGATIVE 02/02/19 00:35 Urine Cocaine Screen NEGATIVE 02/02/19 00:35 U Marijuana (THC) Screen NEGATIVE 02/02/19 00:35 RPR NONREACTIVE (NONREACTIVE) 02/02/19 01:11 Blood Type A POSITIVE 02/02/19 01:11 Antibody Screen NEGATIVE 02/02/19 01:11 Plan Health Concerns: normal Plan of Treatment: normal Goals: no complications Time Spent: Less than 30 Minutes - baby home with mom
== END 2019-02-03 13:33 | disposition home or self-care (01) | DRG 806 ==
LOC: LC 00:23 → LR 00:56 → 2S 05:07
PROVIDERS: ADMIT Obstetrics & Gynecology Gynecology; ATTEND Obstetrics & Gynecology Gynecology
PROC: 10E0XZZ Delivery of Products of Conception, External Approach (ICD-10-PCS; principal; 2019-02-02)
PROC: 10907ZC Drainage of Amniotic Fluid, Therapeutic from Products of Conception, Via Natural or Artificial Opening (ICD-10-PCS; 2019-02-02)
DX: O62.3 Precipitate labor (principal); D62 Acute posthemorrhagic anemia; Z37.0 Single live birth; Z3A.39 39 weeks gestation of pregnancy; O99.013 Anemia complicating pregnancy, third trimester; Z88.0 Allergy status to penicillin
CPT/HCPCS: 36415; 80307; 81005; 85025; 85027; 86592; 86850; 86900; 86901; J2210; J2590; J3490

== ENCOUNTER → 2019-08-08 | Outpatient (CLI) | payer OTHER ==
[2019-08-09 07:07] LABS: HEPATITIS B CORE AB TOT Negative (Negative)
[2019-08-09 09:25] LABS: VARICELLA ZOSTER IGG AB >4000 index (Immune >16)
== END ==
LOC: OD 11:12
PROVIDERS: ATTEND Nurse Practitioner Family
DX: Z01.84 Encounter for antibody response examination (principal)
CPT/HCPCS: 36415; 86317; 86704; 86735; 86762; 86765; 86787